=== PATIENT | female | born 1965 | race Caucasian/White ===

== ENCOUNTER 2017-04-25 10:33 | Outpatient (CLI) ==
[2013-05-11 16:02] VITALS: BMI 57.0
--- NOTE | 2017-04-25 12:01 | DI ---
EXAM: Two views of the right hand HISTORY: Right hand pain. COMPARISON: None FINDINGS: There is no cortical irregularity or displaced fracture. There is scattered areas of narro wing and mild osteophyte formation throughout the DIP and PIP joints. No definitive erosion is ident ified. The soft tissues are normal. There is no lytic or blastic lesion. IMPRESSION: Mild scattered degenerative change of the DIP and PIP joints.
--- NOTE | 2017-04-25 12:06 | DI ---
EXAM: Radiographs, right wrist HISTORY: Right wrist pain. COMPARISON: None available. TECHNIQUE: Two views. FINDINGS: Bone mineralization is normal. No acute fracture or dislocation identified. Well cortica gonzález ossific fragment adjacent to the tip of the ulnar styloid may relate to prior trauma. Joint spac es are maintained. Soft tissues are unremarkable. IMPRESSION: No acute abnormality of the right wrist.
--- NOTE | 2017-04-25 12:06 | DI ---
EXAM: Radiographs, left hand HISTORY: Left hand pain. COMPARISON: None available. TECHNIQUE: Two views. FINDINGS: Bone mineralization is normal. There is no fracture or dislocation. Mild joint space narr owing and marginal osteophyte formation noted throughout the interphalangeal joints as well as the fi rst carpal metacarpal joint and the radiocarpal joint. No erosive changes are seen. No focal soft t issue abnormality is seen. IMPRESSION: Mild osteoarthritis.
--- NOTE | 2017-04-25 12:06 | DI ---
EXAM: Radiographs, left elbow HISTORY: Double pain. COMPARISON: None available. TECHNIQUE: Three views. FINDINGS: Bone mineralization is normal. There is no fracture or dislocation. The joint spaces are maintained although mild marginal osteophyte formation seen at the humeral ulnar joint. Tiny olecra non spur noted. No focal soft tissue abnormality is seen. IMPRESSION: Mild osteoarthritis.
--- NOTE | 2017-04-25 12:07 | DI ---
EXAM: Radiographs, right elbow HISTORY: Elbow pain. COMPARISON: None available. TECHNIQUE: Two-view. FINDINGS: Bone mineralization is normal. There is no fracture or dislocation. The joint spaces are maintained, although there is mild marginal osteophyte formation at the humeral ulnar joint. Possib le tiny olecranon spur noted. No focal soft tissue abnormality is seen. IMPRESSION: Mild osteoarthritis.
--- NOTE | 2017-04-25 12:08 | DI ---
EXAM: Left wrist AP and lateral views HISTORY: Wrist pain. FINDINGS: Probable early osteoarthritis of the radiocarpal joints and the first carpal-metacarpal antonio int. No fracture or dislocation is identified. Soft tissues are grossly unremarkable. IMPRESSION: Mild osteoarthritis.
--- NOTE | 2017-04-25 12:08 | DI ---
EXAM: Radiographs, right shoulder HISTORY: Right shoulder pain. COMPARISON: None available. TECHNIQUE: Eight views. FINDINGS: Bone mineralization is normal. Probable exostosis off the proximal humeral diaphysis seen on the internal rotation view . There is no fracture or dislocation. The joint spaces are maintain ed although there is mild spurring at the glenohumeral joint. No focal soft tissue abnormality is se en. IMPRESSION: Mild glenohumeral osteoarthritis.
--- NOTE | 2017-04-25 12:08 | DI ---
EXAM: Radiographs, left shoulder HISTORY: Left shoulder pain. COMPARISON: None available. TECHNIQUE: Two views. FINDINGS: Bone mineralization is normal. There is no fracture or dislocation. The joint spaces are maintained although there is mild spurring at the acromioclavicular and glenohumeral joints. No foc al soft tissue abnormality is seen. IMPRESSION: Mild osteoarthritis pre
--- NOTE | 2017-04-25 12:24 | DI ---
EXAM: Two views of the right hip HISTORY: Right hip pain. COMPARISON: Left hip x-rays same day FINDINGS: There is mild narrowing and degenerative osteophyte formation noted in the right hip joint space. There is no displaced fracture or dislocation. There is no lytic or blastic lesion. There i s mild degenerative change of the sacroiliac joint. IMPRESSION: 1. No acute abnormality or displaced fracture of the right hip. 2. Mild degenerative disease of the right hip and sacroiliac joint.
--- NOTE | 2017-04-25 12:25 | DI ---
EXAM: Two views of the left hip HISTORY: Left hip pain. COMPARISON: Right hip x-rays same day and pelvis x-ray 02/27/2013 FINDINGS: There is mild narrowing and osteophyte formation of the left hip joint. There is no lytic or blastic lesion. There is no displaced fracture or dislocation identified. The pelvis is unremark able. There is degenerative disease of the left sacroiliac joint. IMPRESSION: Moderate degenerative disease of the left hip with no displaced fracture or dislocation.
--- NOTE | 2017-04-25 12:26 | DEXA ---
EXAM: Bone Densitometry DEXA. HISTORY: Postmenopausal COMPARISON: None FINDINGS: DEXA scan of the right forearm spine was performed. Quality of the study is good. Bone mineral densi ty of the radius is 0.560 grams per square centimeter. T-score is 2.0. Z-score is 2.3. IMPRESSION: Right forearm: Normal bone marrow density. Reference Values according to World Health Organization criteria: T score greater than -1 is normal T score -1 to -2.5 is osteopenia T score less than -2.5 is osteoporosis.
--- NOTE | 2017-04-25 12:26 | DI ---
EXAM: Right foot two views HISTORY: Pain COMPARISON: 09/07/2011 FINDINGS: No fracture or subluxation. Chronic prominence of the medial navicular appears unchanged. Small plantar calcaneal spur. Moderate posterior calcaneal enthesopathy. Mild osteoarthritis firs t MTP joint. No focal soft tissue abnormality. IMPERSSION: 1. No fracture or subluxation. 2. Chronic and degenerative changes as described.
--- NOTE | 2017-04-25 12:28 | DI ---
EXAM: Two views of the left foot HISTORY: Left foot pain. COMPARISON: Left foot x-rays 09/07/2011 FINDINGS: There is no cortical irregularity or displaced fracture of the left foot. Large osteophyte is noted at the insertion site of the Achilles tendon on the calcaneus which has worsened since prio r exam. The arch is maintained. There is degenerative disease in the midfoot and at the first MTP j oint. No lytic or blastic lesion is identified. IMPRESSION: 1. No acute abnormality or displaced fracture. 2. Large posterior calcaneal osteophyte. 3. Mild degenerative change in the midfoot and the first MTP joint.
--- NOTE | 2017-04-25 12:32 | DI ---
EXAM: Radiographs, left knee HISTORY: Left knee pain. COMPARISON: None available. TECHNIQUE: Two views. FINDINGS: Bone mineralization is normal. No fracture or dislocation identified. Moderate to severe medial compartment joint space narrowing noted. Moderate tricompartmental marginal osteophyte forma tion is present. There may be some loose bodies about the medial aspect of the knee joint. No erosi ve changes are seen. No soft tissue abnormality identified. IMPRESSION: Osteoarthritis, moderate to severe in the medial compartment.
--- NOTE | 2017-04-25 12:33 | DI ---
EXAM: Left ankle two views HISTORY: Ankle pain. FINDINGS: Nonstandard radiographic projection on the frontal view limits the exam. There is no obvi ous fracture or joint dislocation. No joint effusion is seen. No notable arthropathy at the ankle j oints proper. There is bulky bony spurring of the posterior calcaneus and also at the insertion of t he Achilles tendon. IMPRESSION: 1. Ankle joints proper within normal limits. 2. Bulky bony spurring of the posterior calcaneus.
--- NOTE | 2017-04-25 12:34 | DI ---
EXAM: RIGHT KNEE. HISTORY: Knee pain. FINDINGS: Right knee two-view. There is minimal/early osteoarthritis of the medial compartment. Th e other two compartments are normal. There is no fracture or joint effusion. Soft tissues within no rmal limits. IMPRESSION: Mild medial compartment osteoarthritis.
--- NOTE | 2017-04-25 12:37 | DI ---
EXAM: Two views of the right ankle HISTORY: Right ankle pain. COMPARISON: None FINDINGS: There is no lytic or blastic lesion of the right ankle. There is no displaced fracture. T here is degenerative disease in the midfoot and a large posterior calcaneal spur. There is mild dege nerative osteophyte formation of the ankle. IMPRESSION: 1. Mild degenerative disease of the right ankle with no acute abnormality or fracture. 2. Large posterior calcaneal spur and mild degenerative disease in the midfoot.
== END 2017-04-25 10:34 | disposition home or self-care (01) ==
LOC: RAD 10:33
PROVIDERS: ATTEND Internal Medicine Rheumatology
DX: G62.9 Polyneuropathy, unspecified (principal); R53.83 Other fatigue; M19.90 Unspecified osteoarthritis, unspecified site; M79.1 Myalgia; E83.42 Hypomagnesemia; E55.9 Vitamin D deficiency, unspecified; D50.9 Iron deficiency anemia, unspecified; E53.8 Deficiency of other specified B group vitamins; Z13.1 Encounter for screening for diabetes mellitus; Z78.0 Asymptomatic menopausal state; Z51.81 Encounter for therapeutic drug level monitoring; Z79.899 Other long term (current) drug therapy
CPT/HCPCS: 36415; 80053; 82306; 82550; 82607; 82728; 82746; 83036; 83735; 84550; 85027; 85651; 86038; 86200; 86320; 86325; 86430

== ENCOUNTER 2017-05-11 14:26 | Outpatient (CLI) ==
[2013-05-11 16:02] VITALS: BMI 57.0
== END 2017-05-11 14:27 | disposition home or self-care (01) ==
LOC: LAB 14:26
PROVIDERS: ATTEND Internal Medicine Rheumatology
DX: R79.89 Other specified abnormal findings of blood chemistry (principal)
CPT/HCPCS: 36415; 86225; 86235